=== PATIENT | male | born 1975 | race Caucasian/White ===

== ENCOUNTER 2018-10-27 08:25 | Emergency (ER) | payer OTHER ==
[~2018-10-27] VITALS: Ht 160 cm; Wt 52.2 kg
[2018-10-27] MEDS ORDERED: ORPH100T PO (08:48)
[2018-10-27] MEDS ORDERED: IBUP-1007 PO (08:48)
[2018-10-27] MEDS ORDERED: HYDR-3164 PO (08:48)
--- NOTE | 2018-10-27 08:48 | PHYS DOC ---
Adult General Chief Complaint Chief Complaint: LOWER BACK PAIN OR INJURY HPI HPI Patient is a 43 year old male who presents with 2 weeks ago coughed and pulled a muscle in his mid lower back. Sunday he then tripped and fell on a cement floor further injuring his back. Patient is ambulatory with a steady gait. Review of Systems Review of Systems Constitutional: Denies fever or chills [] Eyes: Denies change in visual acuity, redness, or eye pain [] HENT: Denies nasal congestion or sore throat [] Respiratory: Denies cough or shortness of breath [] Cardiovascular: No additional information not addressed in HPI [] GI: Denies abdominal pain, nausea, vomiting, bloody stools or diarrhea [] : Denies dysuria or hematuria [] Musculoskeletal: low back pain or joint pain [] Integument: Denies rash or skin lesions [] Neurologic: Denies headache, focal weakness or sensory changes [] Endocrine: Denies polyuria or polydipsia [] All other systems were reviewed and found to be within normal limits, except as documented in this note. Physical Exam Physical Exam Constitutional: Well developed, well nourished, no acute distress, non-toxic appearance. [] HENT: Normocephalic, atraumatic, bilateral external ears normal, oropharynx moist, no oral exudates, nose normal. [] Eyes: PERRLA, EOMI, conjunctiva normal, no discharge. [] Neck: Normal range of motion, no tenderness, supple, no stridor. [] Cardiovascular:Heart rate regular rhythm, no murmur [] Lungs & Thorax: Bilateral breath sounds clear to auscultation [] Abdomen: Bowel sounds normal, soft, no tenderness, no masses, no pulsatile masses. [] Skin: Warm, dry, no erythema, no rash. [] Back: No tenderness but pain with movement during exam, no CVA tenderness. [] Extremities: No tenderness, no cyanosis, no clubbing, ROM intact, no edema. [] Neurologic: Alert and oriented X 3, normal motor function, normal sensory function, no focal deficits noted. [] Psychologic: Affect normal, judgement normal, mood normal. [] EKG EKG [] Radiology/Procedures Radiology/Procedures [] Course & Med Decision Making Course & Med Decision Making Patient is a 43 year old male who presents with 2 weeks ago coughed and pulled a muscle in his mid lower back. Sunday he then tripped and fell on a cement floor further injuring his back. Patient is ambulatory with a steady gait. And oriented. Skin pink warm and dry. Patients mid low back is painful when he states that it will go crossed his whole back. Patient states he only has pain with movement. There is no bruising or deformity or swelling to his back. With palpation there is no bony spinal tenderness or tenderness to his back at all. No CVA tenderness. Patient denies any urinary incontinence or bowel incontinence. He denies any dysuria. Eyes any nausea vomiting states he did not hit his head when he fell. Patient states only thing on his body that hurts is his back. He is given a dose of Norflex, [place], ibuprofen the ED. Patient be sent home with Norflex, [place], ibuprofen and needs to follow-up with his primary care doctor. Patient can also use heat to help with pain. [] Dragon Disclaimer Dragon Disclaimer This electronic medical record was generated, in whole or in part, using a voice recognition dictation system. Departure Departure Impression: Primary Impression: Low back strain Disposition: HOME, SELF-CARE Condition: STABLE Patient Instructions: Low Back Sprain with [facility] Additional Instructions: Use medications as prescribed. Do not do any heavy lifting or any strenuous activities until feeling better. Follow-up with her primary care. Also use heat to help with pain. Scripts Hydrocodone/Apap 5-325 (NORCO 5-325 TABLET) 1 Each Tablet 1 TAB PO PRN Q6HRS PRN for PAIN, #15 TAB 0 Refills Prov: THOMAS BANKS APRN 10/27/18 Ibuprofen (IBUPROFEN) 600 Mg Tablet 600 MG PO PRN Q6HRS PRN for INFLAMMATION, #30 TAB Prov: THOMAS BANKS APRN 18 Orphenadrine Citrate (ORPHENADRINE CITRATE) 100 Mg Tablet.er 1 TAB PO BID, #30 TAB Prov: THOMAS BANKS APRN 10/27/18 Problem Qualifiers Primary Impression: Low back strain Encounter type: initial encounter Qualified Codes: S39.012A - Strain of muscle, fascia and tendon of lower back, initial encounter THOMAS BANKS APRN Oct 27, 2018 08:48
[2018-10-27] MEDS: HYDROcodone/APAP 5/325MG 1 TAB TABLET PO ONE (08:59)
[2018-10-27] MEDS: ORPHENADRINE CITRATE 60 MG/2 ML VIAL. IM ONE (08:59)
[2018-10-27] MEDS: KETOROLAC 60 MG/2 ML INJ. IM ONE (08:59)
[2018-10-27 09:01] LABS: BILIRUBIN,URINE NEGATIVE (NEG); CLARITY,URINE CLEAR; COLOR,URINE YELLOW; NITRITE,URINE NEGATIVE (NEG); PH,URINE 5.5; PROTEIN,URINE NEGATIVE (NEG-TRACE); UROBILINOGEN,URINE 0.2 mg/dL (0.2 mg/dL)
[2018-10-27 09:13] LABS: BACTERIA,URINE FEW /HPF (0-FEW); RBC,URINE RARE /HPF (0-2); WBC,URINE RARE /HPF (0-4)
[2018-10-27 09:24] VITALS: BP 123/76
== END 2018-10-27 09:26 | disposition home or self-care (01) ==
LOC: ER 08:25
DX: S39.012A Strain of muscle, fascia and tendon of lower back, initial encounter (principal); R05 Cough; W01.198A Fall on same level from slipping, tripping and stumbling with subsequent striking against other object, initial encounter; Y93.89 Activity, other specified; Y92.89 Other specified places as the place of occurrence of the external cause; Y99.8 Other external cause status
CPT/HCPCS: 81001; 96372; 99283; J1885; J2360

== ENCOUNTER 2019-11-19 22:30 | Emergency (ER) | payer BC, OTHER ==
[~2019-11-19] VITALS: Ht 167.6 cm; Wt 52.2 kg
[~2019-11-19 22:30] MED LIST: HYDR-3164 PO; IBUP-1007 PO; ORPH100T PO
[2019-11-19 23:10] VITALS: BP 132/87
== END 2019-11-19 23:55 | disposition left against medical advice (07) ==
LOC: ER 22:30
DX: K08.89 Other specified disorders of teeth and supporting structures (principal); Z53.21 Procedure and treatment not carried out due to patient leaving prior to being seen by health care provider